=== PATIENT | female | born 1970 | race Caucasian/White ===

== ENCOUNTER 2016-04-21 05:47 | Day surgery (SDC) | payer BC ==
[2016-04-13 10:34] LABS: BASOPHILS 0.5 %; BASOPHILS ABSOLUTE 0.03 10/3/uL (0.0-0.16); EOSINOPHILS 0.7 %; EOSINOPHILS ABSOLUTE 0.04 10/3/uL (0.0-0.53); HEMOGLOBIN 13.8 g/dL (12.0-16.0); IMMATURE GRANULOCYTES 0.2 %; IMMATURE GRANULOCYTES ABSOLUTE 0.01 10/3/uL (0.0-0.11); LYMPHOCYTES 22.5 %; LYMPHOCYTES ABSOLUTE 1.38 10/3/uL (0.67-4.30); MEAN CORPUS HGB CONC 34.4 g/dL (32.0-36.0); MEAN CORPUSCULAR HEMOGLOB 30.7 pg (26.0-34.0); MEAN CORPUSCULAR VOLUME 89.1 fL (80-100); MEAN PLATELET VOLUME 9.5 fL (9.2-13.0); MONOCYTES 4.2 %; MONOCYTES ABSOLUTE 0.26 10/3/uL (0.21-1.20); NEUTROPHILS 71.9 %; PLATELET COUNT 312 10/3/uL (150-400); RBC DISTRIBUTION WIDTH 12.3 % (12.0-16.0)
[2016-04-13 10:39] LABS: BUN (BLOOD UREA NITROGEN) 15 MG/DL (6-23); CHLORIDE, SERUM 103 MMOL/L (96-112); CO2 (CARBON DIOXIDE) 28 MMOL/L (24-34); CREATININE 0.66 MG/DL (0.55-1.02); GFR AFRICAN AMERICAN 123 ML/MIN (>=60); GFR NON AFRICAN AMERICAN 106 ML/MIN (>=60); GLUCOSE, SERUM 305 MG/DL (60-99); HEMATOCRIT 40.1 % (36.0-48.0); MANUAL DIFF NO %; POTASSIUM, SERUM 4.1 MMOL/L (3.5-5.3); SODIUM, SERUM 141 MMOL/L (135-148); WHITE BLOOD CELLS 6.1 10/3/uL (4.5-10.5)
[2016-04-13 10:45] LABS: ASCORBIC ACID (UR NOT ORDER) NEG (NEG); BILIRUBIN, URINE NEGATIVE (NEG); KETONE, URINE NEGATIVE (NEG); LEUKOCYTE ESTERASE(NOT OR NEG (NEG); WBC (NOT ORDERED) (RFLEX) 2 (0-5)
--- NOTE | ~2016-04-21 | OP ---
Record Of Operation [facility] [address] [place]. [address] NAME: KALEB MCGUIRE : 68 STATUS : [facility] PAT#: [id number] AGE: 45 ADM/REG DATE : 04/21/16 MR#: [id number] REPORT SERV DATE: 04/21/16 DICTATED BY: BISMARK MAYA DATE: 04/21/16 REPORT STATUS : Draft TRANSCRIBED BY: MODL DATE: 04/21/16 DATE OF PROCEDURE: 04/21/2016 PREOPERATIVE DIAGNOSIS: Cervical dysplasia. POSTOPERATIVE DIAGNOSIS: Cervical dysplasia. PROCEDURE: Robot-assisted laparoscopic hysterectomy with bilateral salpingectomy, CPT code 16563; cystoscopy. SURGEON: Bismark Maya MD. ANESTHESIA: General. ESTIMATED BLOOD LOSS: 25 mL. CRYSTALLOID: 1500 mL. URINE OUTPUT: 200 mL. DRAINS: Torres. FINDINGS: No evidence of gross cervical disease. No Intraabdominal or pelvic abnormal findings. Both ovaries were grossly normal. PATHOLOGY: Uterus, uterine, cervix, bilateral fallopian tubes. COMPLICATIONS: None. POSTOPERATIVE PLAN: Extubated to PACU. PROCEDURE IN DETAIL: After informed consent was signed, the patient was taken to the operating room and placed in dorsal supine position where adequate general anesthesia was administered. She was then placed in dorsal lithotomy position in Keo stirrups, and prepped and draped in usual fashion, and a Torres catheter was placed. The uterus was sounded, cervix dilated, and the CRICKET uterine manipulator was assembled and deployed. Supraumbilical incision was made with a scalpel and carried down to the fascia, which was incised, muscle , posterior sheath entered sharply, trocar placed and abdomen insufflated with CO2 gas. Robot trocars were placed in the bilateral upper quadrants and oceanographer assistant port placed in the left upper quadrant all under direct visualization. The patient was then placed in steep Trendelenburg and the robot docked in the usual fashion. Bilateral round ligaments were taken with bipolar cautery, transected with monopolar scissors, and the pelvic peritoneal was taken down lateral and parallel to the infundibulopelvic ligaments with the ureters reflected medially, clips were placed in the origins of the uterine arteries bilaterally. The bilateral mesosalpinx was taken with monopolar scissors up to the level of the uterine cornua, they were then transected and Record Of Operation [facility] [address] [place]. [address] NAME: KALEB MCGUIRE : 68 STATUS : [facility] [place] PAT#: [id number] AGE: 45 ADM/REG DATE : 04/21/16 MR#: [id number] REPORT SERV DATE: 04/21/16 DICTATED BY: BISMARK MAYA DATE: 04/21/16 REPORT STATUS : Draft TRANSCRIBED BY: MODL DATE: 04/21/16 taken out through the correction of the fallopian tubes. We then transected at the uterine cornua and taken out through the oceanographer assistant port. Next, the uterine ovarian ligaments were then taken with bipolar cautery, transected with monopolar scissors, and the ovaries placed into the upper pelvis. The posterior colpotomy was made. Next, the vesicouterine peritoneum was then incised and the bladder taken down well beneath the level of the anterior TREVOR ring and the anterior colpotomy was made. The uterine vessels were then taken at the cervix with bipolar cautery, transected with monopolar scissors, and the parametria reflected off the cervical stroma. The anterior and posterior colpotomies were then connected using monopolar scissors; and the uterus, uterine, cervix were then brought out through the vagina. The vagina was then closed with 0 180 V-Loc suture with a running stitch. The both ovaries were then sutured to the bilateral pelvic sidewall, peritoneum with 3-0 PDS suture. Care was taken to ensure the linearity of the ovarian blood supply was confirmed. The pelvis was irrigated, excellent hemostasis was noted. All instruments were then removed from the abdomen. The robot was undocked and CO2 gas evacuated. The Torres catheter was removed and the cystoscope placed through the urethra and the bladder was distended with appropriate media. Bilateral brisk ureteral jets were noted suggesting bilateral ureteral patency. The cystoscope was removed and the bladder drained. The CO2 gas was then readvanced into the abdomen, and using the laparoscope, the pelvis was re- examined and found to be hemostatic. The laparoscope and all trocars were then removed from the abdomen and CO2 gas evacuated. The fascia from the left upper quadrant incision and the supraumbilical incision was closed with 0 Vicryl suture, and the skin was closed with 4-0 Monocryl and Dermabond. The patient tolerated the procedure well, was placed back in dorsal supine position, awakened, extubated, and sent to the PACU in stable condition. Appropriate antibiotics were given prior to start of the procedure. TB/MODL Bismark Maya MD / [id number] CC: MD Kuldeep Solo M.D.
[~2016-04-21 05:47] MED LIST: EFFEXXR75 PO; GLUCOTRO10 PO; KLONO5 PO; TUMS
== END 2016-04-21 13:32 | disposition home or self-care (01) ==
LOC: SDC 05:47
PROVIDERS: Obstetrics & Gynecology Gynecology
PROC: 0UT74ZZ Resection of Bilateral Fallopian Tubes, Percutaneous Endoscopic Approach (ICD-10-PCS; 2016-04-21)
PROC: 0UT94ZZ Resection of Uterus, Percutaneous Endoscopic Approach (ICD-10-PCS; principal; 2016-04-21 07:00)
PROC: 0UTC4ZZ Resection of Cervix, Percutaneous Endoscopic Approach (ICD-10-PCS; 2016-04-21 07:00)
DX: N80.0 Endometriosis of uterus (principal); N80.2 Endometriosis of fallopian tube; N87.9 Dysplasia of cervix uteri, unspecified; E11.9 Type 2 diabetes mellitus without complications; G47.30 Sleep apnea, unspecified; K21.9 Gastro-esophageal reflux disease without esophagitis; F17.200 Nicotine dependence, unspecified, uncomplicated; F32.9 Major depressive disorder, single episode, unspecified; Z99.81 Dependence on supplemental oxygen; Z88.8 Allergy status to other drugs, medicaments and biological substances; Z90.89 Acquired absence of other organs
CPT/HCPCS: 36415; 80048; 81001; 82962; 84703; 85025; 86850; 86900; 86901; 88307; A9270-GY; J0694; J1885; J2250; J2405; J2710; J2795; J3010